=== PATIENT | female | born 1995 | race Caucasian/White ===

== ENCOUNTER 2023-05-07 16:44 | Emergency (ER) | payer MEDICAID ==
[~2023-05-07] VITALS: Ht 160 cm; Wt 63.6 kg
[2023-05-07 16:51] VITALS: TEMP 98.4
[2023-05-07] MEDS ORDERED: Ibuprofen 600 MG TAB PO ONE (17:15)
[2023-05-07 18:07] VITALS: BP 111/69; PULSE 68
== END 2023-05-07 18:07 | disposition home or self-care (01) ==
LOC: COL.ER 16:44
DX: S40.012A Contusion of left shoulder, initial encounter (principal); S50.02XA Contusion of left elbow, initial encounter; W10.9XXA Fall (on) (from) unspecified stairs and steps, initial encounter